=== PATIENT | male | born 1950 | race Caucasian/White ===

== ENCOUNTER → 2016-05-23 | Outpatient (CLI) | payer MEDICARE, BC ==
--- NOTE | 2016-05-23 10:53 | KCIC ---
Renal ultrasound Indication: Reason For Study Reason: / Spl. Instructions: / History: TECHNIQUE Multiple real-time grayscale sonographic images were obtained over the kidneys and bladder. FINDINGS The right kidney is normal in size measuring 11.1 x 4.8 x 5.9centimeters. There is a 5 millimeter right renal calculus there is mild hydronephrosis but this does not appear to be due to the presence of the calculus. The left kidney is normal in size measuring 11.8 x 5.9 x 6.2 centimeters. There is no evidence for mass, hydronephrosis, or nephrolithiasis. Urinary bladder shows a prevoid volume of 276 cc and a postvoid volume of 399 cc. Patient was unable to void. The prostate gland is mildly enlarged measuring 4.2 centimeters. IMPRESSION - There is mild hydronephrosis of the right kidney. There is also a 5 millimeter calculus in the inferior pole but this does not appear to be the cause of the obstruction. Electronically signed by: Theodore Rodriguez (May 23, 2016 10:51:27)
== END | disposition home or self-care (01) ==
LOC: KCIC US 07:39
PROVIDERS: ATTEND Physician Assistant Medical
DX: N13.39 Other hydronephrosis (principal); N20.0 Calculus of kidney
CPT/HCPCS: 76770

== ENCOUNTER → 2016-05-27 | Outpatient (CLI) | payer MEDICARE, BC ==
[~2016-05-27] MED LIST: ATOR10TA60 PO; GABA-585 PO; INSU100C SQ; INSU100I13 SQ; IOHEXOL 300 MG/ML 100ML VIAL. IV ONE; METF500T4 PO; TIMO5DRO26 OP
--- NOTE | 2016-05-27 12:13 | KCIC ---
PROCEDURE CT abdomen and pelvis with and without contrast, CT urogram. HISTORY Hydronephrosis and nephrolithiasis. Abnormal ultrasound. TECHNIQUE Helical CT imaging of the abdomen and pelvis is performed pre contrast. Helical CT imaging of the abdomen is acquired during nephrographic phase after 95 cc of Omnipaque 300 IV contrast. A 10 minutes delay phase acquisition of the abdomen and pelvis is then acquired. PQRS: One or more the following individualized dose reduction techniques were utilized for the study: 1. Automated exposure control. 2. Adjustment of the mA and/or kV according to patient size. 3. Use of iterative reconstruction technique. COMPARISON Renal ultrasound, 4 days ago. FINDINGS There are at least 7 nonobstructing left renal calculi. Largest measures 6 millimeters. There are at least 5 sub 5 millimeter nonobstructing calculi in the lower pole the right kidney. There is no left hydronephrosis. Left ureter is normal. Right kidney is atrophic. There is perinephric stranding. There is moderate right hydroureteronephrosis. Findings secondary to a 9 x 7 millimeter calculus at the right ureterovesicular junction. The there is a least 1 tiny calculus just proximal to the larger calculus, coronal image 105. There are 2 small left renal cysts. No appreciable delayed enhancement of the right kidney compared to the left. Urinary bladder is normal. The prostate is mildly enlarged and protrudes into the base of the bladder. Calcified granuloma right middle lobe. Lungs otherwise clear. The cardiac size normal. There is fatty infiltration of the liver. Gallbladder, spleen, pancreas, adrenal glands, and abdominal aortic caliber are normal. Stomach unremarkable. There is a right periumbilical hernia that contains short segment of small bowel and fat. No evidence of small bowel obstruction. Moderate sigmoid colon diverticulosis. The appendix is normal. No colon wall thickening. There is scattered stool in the colon. There is no abdominal adenopathy or free fluid. No pelvic free fluid is seen. No acute bone abnormality. IMPRESSION 1. Moderate right obstructive uropathy secondary to a 9 x 7 millimeter calculus at the right ureterovesicular junction. Right kidney is atrophic. 2. Bilateral nonobstructing renal calculi. 3. Prostate is mildly enlarged and protrudes into the base of the bladder. 4. Mild fatty infiltration of the liver. 5. Moderate sigmoid colon diverticulosis without evidence of diverticulitis. Electronically signed by: Blake Crook MD (May 27, 2016 12:11:19)
== END | disposition home or self-care (01) ==
LOC: KCIC CT 08:14
PROVIDERS: ATTEND Physician Assistant Medical
DX: N13.30 Unspecified hydronephrosis (principal); N20.0 Calculus of kidney
CPT/HCPCS: 74178; 82565; Q9967